=== PATIENT | female | born 1985 | race Caucasian/White ===

== ENCOUNTER 2020-02-13 20:11 | Emergency (ER) | payer BC, MEDICAID ==
[~2020-02-13] VITALS: Ht 157.5 cm; Wt 53.2 kg
[~2020-02-13 20:11] MED LIST: CARI1.5C PO; CLON-529 PO; DESV25TA PO; LAMO250T PO; LITH450T2 PO; TOPI50TA PO
[2020-02-13] MEDS ORDERED: TEMA15CA5 PO (20:37)
[2020-02-13] MEDS ORDERED: LAMO25TA94 PO (20:37)
[2020-02-13] MEDS ORDERED: ZIPR20CA2 PO (20:37)
[2020-02-13] MEDS ORDERED: FLUT16SP2 BOTHNARES (20:37)
[2020-02-13] MEDS ORDERED: CLON-528 PO (20:37)
[2020-02-13] MEDS ORDERED: ALBU8HFA PO (20:37)
--- NOTE | 2020-02-13 20:37 | NUR ---
Denilson diaz in ED - 02/13/20 at 2039 by CRUZITO \ RESPIRATORY DEPRESSION =NARCAN FLUMAZENIL SEIZURES, EKG ABNORMALITIES HTN, PEAK EFFECTS WITHIN 6-8 HOURS
[2020-02-13] MEDS ORDERED: normal saline 1000ml 1,000 ML IVB ONE (20:40)
--- NOTE | 2020-02-13 20:40 | NUR ---
SPOKE WITH SHIRA FROM [facility] REGARDING PT OVERDOSE. STATES MAY SEE RESPIRATORY DEPRESSION, HYPERTENSION, AND TACHYCARDIA DUE TO THESE MEDICAITONS THE PT TOOK. RECOMMENDS EKG AND SOME ABNORMALITIES ARE EXPECTED DUE TO THE MEDICATIONS, DO NOT GIVE FLUMAZENIL. STATES MAY GIVE NARCAN FOR RESPIRATORY DEPRESSION IF NEEDED. SEIZURES MAY ALSO OCCUR AND EDMD PHYSICIAN MAY TX ACCORDINGLY. EXPECT MEDICATION PEAK EFFECTS WITHIN 6-8 HOURS. EDMD DEXTER AND SARY CARDENAS MADE AWARE OF FINDINGS.
[2020-02-13 20:59] LABS: BASOPHILS % (AUTO) 0.6 % (0-1); EOSINOPHILS # (AUTO) 0.1 X10'3 (0-0.9); EOSINOPHILS % (AUTO) 1.5 % (0-6); HEMATOCRIT 39.1 % (35.0-45.0); HEMOGLOBIN 13.2 g/dl (12.0-16.0); LYMPHOCYTES # (AUTO) 2.3 X10'3 (1.1-4.8); LYMPHOCYTES % (AUTO) 32.6 % (21-51); MEAN CORPUSCULAR HEMOGLOBIN 31.4 PG (27.0-31.0); MEAN CORPUSCULAR HGB CONC 33.8 g/dL (33.0-36.5); MEAN CORPUSCULAR VOLUME 92.9 FL (78-98); MEAN PLATELET VOLUME 7.8 FL (7.4-10.4); MONOCYTES # (AUTO) 0.6 X10'3 (0-0.9); MONOCYTES % (AUTO) 8.8 % (2-12); NEUTROPHILS # (AUTO) 3.9 X10'3 (1.8-7.7); NEUTROPHILS % (AUTO) 56.5 % (42-75); PLATELET COUNT 258 X10'3 (140-440); RED BLOOD COUNT 4.21 X10'6 (4.20-5.60); RED CELL DISTRIBUTION WIDTH 12.8 % (11.5-14.5); WHITE BLOOD COUNT 6.9 X10'3 (4.5-11.0)
[2020-02-13 21:02] LABS: CLARITY,URINE CLEAR (Clear); COLOR,URINE YELLOW (Yellow); GLUCOSE, URINE NEGATIVE (Neg); KETONES,URINE NEGATIVE (Neg); LEUKOCYTE ESTERASE ,URINE TRACE (Neg); NITRITES, URINE NEGATIVE (Neg); OCCULT BLOOD,URINE NEGATIVE (Neg); PROTEIN,URINE NEGATIVE (Neg); URINE HCG NEGATIVE (NEG); UROBILINOGEN,URINE 0.2 E.U/dL (0.2-1.0)
[2020-02-13 21:06] LABS: UA COLLECTION TYPE CLN CATCH MIDSTREAM
[2020-02-13 21:08] LABS: BACTERIA,URINE NONE SEEN /HPF (Neg); RBC,URINE NONE SEEN /HPF (0-2); SQUAMOUS EPITHELIAL CELL,UR FEW /LPF (FEW); WBC,URINE 0-4 /HPF (0-4)
[2020-02-13 21:09] LABS: ALANINE AMINOTRANSFERASE 31 U/L (12-78); ALBUMIN 4.1 G/DL (3.4-5.0); ALBUMIN/GLOBULIN RATIO 1.1 (1.1-1.5); ALKALINE PHOSPHATASE 52 IU/L (46-116); ANION GAP 10 (8-16); ASPARTATE AMINO TRANSFERASE 21 U/L (10-37); BILIRUBIN,TOTAL 0.3 MG/DL (0.1-1.0); BLOOD UREA NITROGEN 18 MG/DL (7-18); BUN/CREATININE RATIO 21.2 (6.6-38.0); CALCIUM 9.2 MG/DL (8.5-10.1); CHLORIDE 106 MMOL/L (99-107); CREATININE 0.85 MG/DL (0.40-0.90); GLUCOSE 106 MG/DL (70-104); POTASSIUM 3.5 MMOL/L (3.5-5.1); SODIUM 140 MMOL/L (135-145); TOTAL CARBON DIOXIDE 23.7 MMOL/L (24-32); TOTAL PROTEIN 7.8 G/DL (6.4-8.2); eGFR 77 ML/MIN
[2020-02-13 21:15] LABS: URINE AMPHETAMINE SCREEN NEGATIVE (Neg); URINE BARBITUATE SCREEN NEGATIVE (Neg); URINE BENZODIAZEPINES SCREEN NEGATIVE (Neg); URINE CANNABINOID SCREEN NEGATIVE (Neg); URINE COCAINE SCREEN NEGATIVE (Neg); URINE METHADONE SCREEN NEGATIVE (Neg); URINE OPIATE SCREEN NEGATIVE (Neg); URINE PHENCYCLIDINE SCREEN NEGATIVE (Neg)
[2020-02-13 21:18] LABS: ACETAMINOPHEN < 2.0 UG/ML (10-30); ETHANOL < 0.010 GM/DL (0.0-0.010)
--- NOTE | 2020-02-13 21:26 | NUR ---
pt sleeping, VSS RR 15
--- NOTE | 2020-02-13 21:54 | NUR ---
Debbie Bocanegra- Patient's sister
--- NOTE | 2020-02-13 22:12 | NUR ---
Pt states she took "10 oxy" and her prescribed restoril tonight.
--- NOTE | 2020-02-13 23:39 | NUR ---
Pt resting comfortably, respirations normal, no s/s of distress.
--- NOTE | 2020-02-14 01:00 | NUR ---
Pt resting comfortably, respirations normal, no s/s of distress.
--- NOTE | 2020-02-14 02:03 | NUR ---
Pt resting comfortably, respirations normal, no s/s of distress.
--- NOTE | 2020-02-14 04:05 | NUR ---
Pt in need of assistance to the bathroom due to stated dizziness.
--- NOTE | 2020-02-14 04:56 | NUR ---
Pt resting comfortably, respirations normal, no s/s of distress.
--- NOTE | 2020-02-14 07:21 | NUR ---
PACKET FAXED TO [facility]
[2020-02-14] MEDS ORDERED: ziprasidone 20mg capsule PO SCH (08:00)
[2020-02-14] MEDS ORDERED: fluticasone nasal spray 16GM bottle NS SCH (08:00)
[2020-02-14] MEDS ORDERED: lamoTRIgine 25mg tablet PO SCH (08:00)
--- NOTE | 2020-02-14 08:52 | NUR ---
REMOVED IV, CANNULA INTACT. PATIENT SITTING ON SIDE OF BED EATING BREAKFAST.
--- NOTE | 2020-02-14 09:18 | NUR ---
VALENTIN ODOM AT THE BEDSIDE EVALUATING THE PT ,PT IS ALERT ORIENTED X4.
--- NOTE | 2020-02-14 09:30 | NUR ---
PT STATED THAT WANT HER SISTER WENDY AND KENDRA MCMANUS TO KNOW ABOUT HER POC AND ITS OKAY TO RELEASE THE MEDICAL INFOR.
--- NOTE | 2020-02-14 09:31 | NUR ---
JHON CALLED FROM [facility] ASKED ABOUT PT TOXIC RESULT ,K+,CA,Cr,bun,AST ALT ,PT EKG - QT AND QRS,WHETHER PT HAD ANY SEIZURE ACTIVITY ,WHATS HER LOC,INFORMED THE REQUESTED LAB VALUES,RECENT VITALS AND ALSO INFORMED THAT PT IS ALERTED AND ORIENTED AND TALKING TO MORE[facility] , PER JHON PHARMACISIST PT DOES NOT NEED ANY MORE TOXIC SCREENING PT IS CLEAR .
--- NOTE | 2020-02-14 10:03 | NUR ---
SPOKE TO ILENE BERG AND STATED THAT PT IS PLACED ON 5150 AND NEED A PLACEMENT.
--- NOTE | 2020-02-14 10:11 | NUR ---
PT FLONASE SPRAY ADMIN ,WAITING FOR THE MED FROM THE PHARMACY BEFORE ,ADMIN NOW,NO DISTRESS NOTED ,WILL CONT TO MONITOR.
--- NOTE | 2020-02-14 11:38 | NUR ---
PT APPEAR SLEEPING AT THIS TIME ,NO DISTRESS NOTED.RR EVEN AND UNLABORED.
--- NOTE | 2020-02-14 12:18 | NUR ---
PT SLEEPING IN HER LFT LATERAL POSITION .NO DISTRESS NOTED ,WILL KEEP AN EYE ON PT .RR EVEN AND UNLABORED.
--- NOTE | 2020-02-14 13:25 | NUR ---
PT UP TO EAT HER LUNCH,NO DISTRESS NOTED WILL CONT TO MONITOR.
--- NOTE | 2020-02-14 14:25 | NUR ---
PT RESTING IN BED QUIETLY AFTER HER LUNCH ,NO DISTRESS NOTED WILL CONT TO MONITOR.
--- NOTE | 2020-02-14 16:00 | NUR ---
pt resting in bed quietly will cont to monitor.
--- NOTE | 2020-02-14 16:44 | NUR ---
pt using phone at this time ,talking to her sister seun .will cont to monitor .
[2020-02-14 17:35] VITALS: BP 117/73
--- NOTE | 2020-02-14 18:28 | NUR ---
pt has finished up her dinner ,now sitting up right in bed ,will cont to monitor .
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
--- NOTE | 2020-02-14 20:33 | NUR ---
pt resting in bed quietly ,rr even and unlabored ,no distress noted will cont to monitor.
[2020-02-14] MEDS ORDERED: topiramate 100mg tablet PO SCH (21:00)
--- NOTE | 2020-02-14 22:42 | NUR ---
Received phone call from Charisma at [facility] re pt's acceptance to [facility]. Pt. accepted at [address] Link. Pt. may be transferred to [facility] /p midnight.
--- NOTE | 2020-02-14 23:07 | NUR ---
pt asking for night time medication. Previous nurse was unable to obtain medication from pharmacy. Pharmacy is now filling medication for patient for administration.
--- NOTE | 2020-02-14 23:18 | NUR ---
PT TOOK MEDICATION AND USED THE RESTROOM. PT GIVEN WARM BLANKETS AND IS CURRENTLY RESTING QUIETLY.
[2020-02-15] MEDS ORDERED: MONT10TA21 PO (02:50)
[2020-02-15] MEDS ORDERED: CHOL20004 PO (02:50)
[2020-02-15] MEDS ORDERED: BUDE10.22 INH (02:50)
[2020-02-15] MEDS ORDERED: LEVO25TA2 PO (02:51)
[2020-02-15] MEDS ORDERED: NAPH15DR8 EACHEYE (07:43)
== END 2020-02-14 23:57 ==
LOC: ER 20:12
DX: T40.2X1A Poisoning by other opioids, accidental (unintentional), initial encounter (principal); T42.4X1A Poisoning by benzodiazepines, accidental (unintentional), initial encounter; T43.3X1A Poisoning by phenothiazine antipsychotics and neuroleptics, accidental (unintentional), initial encounter; R45.851 Suicidal ideations; Y92.89 Other specified places as the place of occurrence of the external cause
CPT/HCPCS: 36415; 80053; 80305; 80320; 80329; 81001; 81025; 84443; 85025; 93005; 99285; J7030

== ENCOUNTER 2020-02-14 22:15 | Inpatient (IN) | payer BC, MEDICAID ==
[~2020-02-14] VITALS: Ht 157.5 cm; Wt 53.1 kg
[~2020-02-14 22:15] MED LIST changes: +ALBU8HFA PO; -CARI1.5C PO; +CLON-528 PO; -CLON-529 PO; -DESV25TA PO; +FLUT16SP2 BOTHNARES; -LAMO250T PO; +LAMO25TA94 PO; -LITH450T2 PO; +TEMA15CA5 PO; +ZIPR20CA2 PO
[2020-02-14] MEDS ORDERED: loperamide 2mg capsule PO PRN (23:35)
[2020-02-14] MEDS ORDERED: LORazepam 1 MG tablet PO PRN (23:35)
[2020-02-14] MEDS ORDERED: mag hydrox/Alum hydrox/simeth 30ml oral suspension PO PRN (23:35)
[2020-02-14] MEDS ORDERED: acetaminophen 325mg tablet PO PRN (23:35)
[2020-02-14] MEDS ORDERED: traZODone 50mg tablet PO PRN (23:35)
[2020-02-14] MEDS ORDERED: magnesium hydroxide 30ml (MOM) UD suspension PO PRN (23:35)
[2020-02-14] MEDS ORDERED: NICOTINE POLACRILEX 2 MG LOZENGE BC PRN (23:35)
[2020-02-14] MEDS ORDERED: clonazePAM 0.5mg tablet PO PRN ×2 (23:50→23:52)
[2020-02-14] MEDS ORDERED: albuterol 2.5 MG/3 ML nebule NEB PRN (23:50)
[2020-02-14 23:55] VITALS: BP 131/84
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
[2020-02-15] MEDS ORDERED: BUDE10.22 INH (02:50)
[2020-02-15] MEDS ORDERED: CHOL20004 PO (02:50)
[2020-02-15] MEDS ORDERED: MONT10TA21 PO (02:50)
[2020-02-15] MEDS ORDERED: LEVO25TA2 PO (02:51)
--- NOTE | 2020-02-15 03:54 | NUR ---
Hold initial evaluation, let patient sleep, per RN. Addendum: 02/15/20 at 0355 by Damon Child RT Amended: Links added.
[2020-02-15] MEDS ORDERED: NAPH15DR8 EACHEYE (07:43)
[2020-02-15] MEDS: vitamin D (cholecalciferol) 1,000 unit tablet PO SCH (07:49)
[2020-02-15] MEDS: montelukast 10mg tablet PO SCH (07:49)
[2020-02-15] MEDS: levoTHYROXINE 25mcg tablet PO SCH (07:49)
[2020-02-15] MEDS: fluticasone nasal spray 16GM bottle NS SCH (07:50)
[2020-02-15] MEDS ORDERED: PHENIRAMINE EACHEYE SCH (08:00)
[2020-02-15] MEDS ORDERED: ziprasidone 20mg capsule PO SCH (08:00)
[2020-02-15] MEDS ORDERED: NAPHAZOLINE HCL EACHEYE SCH (08:00)
[2020-02-15] MEDS ORDERED: nicotine 21mg patch - 24 hr TD SCH (08:00)
[2020-02-15] MEDS ORDERED: naphazoline/pheniramine eye 1 DROP BOTTLE EACHEYE PRN (08:10)
[2020-02-15 09:04] VITALS: BP 142/96
[2020-02-15 09:20] LABS: CHOL/HDL RATIO 2.7 (0.00-4.99); CHOLESTEROL 142 MG/DL (0-200); HDL CHOLESTEROL 52 MG/DL (35-60); LDL CHOLESTEROL 74 MG/DL (50-100); TRIGLYCERIDES 90 MG/DL (20-135)
[2020-02-15] MEDS: budesonide 0.5mg/2ml UD nebule IH SCH ×2 (09:25→21:00)
[2020-02-15] MEDS: albuterol 2.5 MG/3 ML nebule NEB SCH ×3 (09:25→21:00)
[2020-02-15 09:35] LABS: HEMOGLOBIN A1C 5.6 % (4.5-6.2)
[2020-02-15] MEDS ORDERED: tetrahydrozoline 0.05% 15ml ophthalmic drops EACHEYE PRN (14:00)
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
[2020-02-15 19:00] VITALS: BP 137/90
[2020-02-15] MEDS: acetaminophen 325mg tablet PO PRN (19:50)
--- NOTE | 2020-02-15 19:50 | NUR ---
Patient complains of a migraine headache. Tylenol given PO.
[2020-02-15] MEDS: ziprasidone 20mg capsule PO SCH (20:00)
[2020-02-15] MEDS ORDERED: topiramate 100mg tablet PO SCH (21:00)
[2020-02-15] MEDS ORDERED: lamoTRIgine 25mg tablet PO SCH ×2 (21:00)
[2020-02-15] MEDS ORDERED: temazepam 15mg capsule PO SCH (21:00)
[2020-02-15] MEDS ORDERED: ondansetron 4mg rapidly disintigrating tab PO ONE ×2 (21:10→21:50)
[2020-02-15] MEDS ORDERED: ketorolac trometh. 30mg/ml inj. IM ONE (21:10)
[2020-02-15] MEDS ORDERED: ondansetron 4mg rapidly disintigrating tab PO PRN (21:50)
[2020-02-16] MEDS: albuterol 2.5 MG/3 ML nebule NEB SCH ×3 (03:00→15:00)
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
[2020-02-16] MEDS: budesonide 0.5mg/2ml UD nebule IH SCH (07:36)
[2020-02-16] MEDS: ziprasidone 20mg capsule PO SCH (07:36)
[2020-02-16] MEDS: vitamin D (cholecalciferol) 1,000 unit tablet PO SCH (07:36)
[2020-02-16] MEDS: montelukast 10mg tablet PO SCH (07:36)
[2020-02-16] MEDS: levoTHYROXINE 25mcg tablet PO SCH (07:37)
[2020-02-16] MEDS: fluticasone nasal spray 16GM bottle NS SCH (07:38)
[2020-02-16 08:00] VITALS: BP 101/67
[2020-02-16] MEDS: acetaminophen 325mg tablet PO PRN (08:13)
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
--- NOTE | 2020-02-16 18:51 | NUR ---
This patient is awake and well oriented. Patient is social and visits with others. Patient denies any distress. Patient denies S/I, H/I, or any hallucinations. Patient is being discharged to home this evening. Her fiance will be picking her up. MICHAEL Vega is completing discharge paperwork. Patients home medications will be retrieved from the pharmacy.
== END 2020-02-16 19:50 | disposition home or self-care (01) | DRG 753 ==
LOC: ADULT MH 22:15
PROVIDERS: ADMIT Psychiatry & Neurology Psychiatry; ATTEND Psychiatry & Neurology Psychiatry
DX: F31.9 Bipolar disorder, unspecified (principal); F60.3 Borderline personality disorder; F43.12 Post-traumatic stress disorder, chronic; J45.909 Unspecified asthma, uncomplicated; E03.9 Hypothyroidism, unspecified; N83.202 Unspecified ovarian cyst, left side; F12.90 Cannabis use, unspecified, uncomplicated; F17.210 Nicotine dependence, cigarettes, uncomplicated; I44.1 Atrioventricular block, second degree; Z90.49 Acquired absence of other specified parts of digestive tract; Z80.1 Family history of malignant neoplasm of trachea, bronchus and lung; Z81.8 Family history of other mental and behavioral disorders; Z83.6 Family history of other diseases of the respiratory system; Z79.51 Long term (current) use of inhaled steroids; Z81.1 Family history of alcohol abuse and dependence; Z85.118 Personal history of other malignant neoplasm of bronchus and lung
CPT/HCPCS: 36415; 80061; 83036; 87081; 94640; 94760; 99285; J1885; J7626

== ENCOUNTER 2023-01-27 12:14 | Emergency (ER) | payer BC, MEDICAID ==
[~2023-01-27] VITALS: Ht 157.5 cm; Wt 55.0 kg
[~2023-01-27 12:14] MED LIST changes: +BUDE10.22 INH; +CHOL20004 PO; +LEVO25TA2 PO; +MONT-47 PO; +NAPH15DR8 EACHEYE
[2023-01-27 13:29] LABS: BASOPHILS % (AUTO) 0.4 % (0-1); EOSINOPHILS # (AUTO) 0.1 X10'3 (0-0.9); EOSINOPHILS % (AUTO) 1.2 % (0-6); HEMATOCRIT 40.5 % (35.0-45.0); HEMOGLOBIN 13.7 g/dl (12.0-16.0); LYMPHOCYTES % (AUTO) 29.6 % (21-51); MEAN CORPUSCULAR HEMOGLOBIN 31.7 PG (27.0-31.0); MEAN CORPUSCULAR HGB CONC 33.7 g/dL (33.0-36.5); MEAN CORPUSCULAR VOLUME 94.2 FL (78-98); MEAN PLATELET VOLUME 7.2 FL (7.4-10.4); MONOCYTES # (AUTO) 0.5 X10'3 (0-0.9); MONOCYTES % (AUTO) 6.6 % (2-12); NEUTROPHILS # (AUTO) 4.3 X10'3 (1.8-7.7); NEUTROPHILS % (AUTO) 62.2 % (42-75); PLATELET COUNT 217 X10'3 (140-440); RED CELL DISTRIBUTION WIDTH 12.7 % (11.5-14.5); WHITE BLOOD COUNT 6.9 X10'3 (4.5-11.0)
[2023-01-27 13:36] LABS: ALANINE AMINOTRANSFERASE 18 U/L (12-78); ALBUMIN 3.8 G/DL (3.4-5.0); ALBUMIN/GLOBULIN RATIO 1.2 (1.1-1.5); ALKALINE PHOSPHATASE 47 IU/L (46-116); AMYLASE 43 U/L (25-115); ANION GAP 9 (8-16); ASPARTATE AMINO TRANSFERASE 14 U/L (10-37); BILIRUBIN,TOTAL 0.3 MG/DL (0.1-1.0); BLOOD UREA NITROGEN 18 MG/DL (7-18); BUN/CREATININE RATIO 26.1 (10.0-20.0); CHLORIDE 103 MMOL/L (99-107); CREATININE 0.69 MG/DL (0.40-0.90); GLUCOSE 98 MG/DL (70-104); LIPASE 61 U/L (73-393); SODIUM 140 MMOL/L (135-145); TOTAL CARBON DIOXIDE 27.6 MMOL/L (24-32); TOTAL PROTEIN 7.1 G/DL (6.4-8.2); eGFR > 90 ML/MIN
[2023-01-27 14:13] LABS: CLARITY,URINE SLIGHTLY CLOUDY (Clear); COLOR,URINE YELLOW (Yellow); GLUCOSE, URINE NEGATIVE (Neg); KETONES,URINE NEGATIVE (Neg); LEUKOCYTE ESTERASE ,URINE NEGATIVE (Neg); NITRITES, URINE NEGATIVE (Neg); OCCULT BLOOD,URINE NEGATIVE (Neg); PROTEIN,URINE NEGATIVE (Neg); UROBILINOGEN,URINE 0.2 E.U/dL (0.2-1.0)
[2023-01-27 14:16] LABS: URINE HCG NEGATIVE (NEG)
[2023-01-27 14:19] LABS: UA COLLECTION TYPE CLN CATCH MIDSTREAM
[2023-01-27 14:26] LABS: BACTERIA,URINE 3+ /HPF (Neg); MUCUS STRANDS MANY /LPF (Neg); RBC,URINE NONE SEEN /HPF (0-2); SQUAMOUS EPITHELIAL CELL,UR MANY /LPF (FEW); WBC,URINE 0-4 /HPF (0-4)
[2023-01-27] MEDS ORDERED: morphine 4 MG/ML inj SYRINge IV ONE (14:50)
[2023-01-27] MEDS ORDERED: ondansetron/PF 4mg/2ml inj IV ONE (14:50)
[2023-01-27] MEDS ORDERED: normal saline 1000ml 1,000 ML IV ONE (14:50)
--- NOTE | 2023-01-27 15:57 | NUR ---
RN NOTIFIED OF IV MEDICATIONS.
[2023-01-27] MEDS ORDERED: IBUP-860 PO (15:59)
[2023-01-27] MEDS ORDERED: ONDA4TAB12 PO (15:59)
[2023-01-27 16:18] VITALS: BP 114/82
== END 2023-01-27 16:20 | disposition home or self-care (01) ==
LOC: ER 12:15
DX: B34.9 Viral infection, unspecified (principal); R51.9 Headache, unspecified; R11.0 Nausea; R10.31 Right lower quadrant pain; I10 Essential (primary) hypertension; F41.9 Anxiety disorder, unspecified; F32.9 Major depressive disorder, single episode, unspecified; F11.90 Opioid use, unspecified, uncomplicated; Z72.89 Other problems related to lifestyle; Z60.2 Problems related to living alone; Z79.899 Other long term (current) drug therapy
CPT/HCPCS: 36415; 76705; 76830; 76856; 80053; 81001; 81025; 82150; 83690; 85025; 93976; 96361; 96374; 99285; J2405; J7030

== ENCOUNTER 2023-05-16 12:47 | Outpatient (CLI) | payer BC ==
[2023-05-16] VITALS (17 sets, daily range): BP systolic 88–129; BP diastolic 36–95; PULSE 61–103
[~2023-05-16 12:47] MED LIST changes: +IBUP-860 PO; +ONDA4TAB12 PO
== END 2023-05-16 23:59 | disposition home or self-care (01) ==
LOC: CARD DIAG 12:47
PROVIDERS: ATTEND Internal Medicine Interventional Cardiology
DX: R42 Dizziness and giddiness (principal)
CPT/HCPCS: 93660